=== PATIENT | male | born 1980 | race Caucasian/White ===

== ENCOUNTER 2024-01-02 13:37 | Emergency (ER) | payer OTHER ==
[2024-01-02 13:52] VITALS: BP 124/79; PULSE 75; RESP 16; TEMP 97.8; BMI 35.5
[2024-01-02] MEDS ORDERED: IBUPROFEN 600 MG TABLET (FP) PO ONE (14:19)
[2024-01-02] MEDS: IBUPROFEN 600 MG TABLET (FP) PO ONE (14:40)
[2024-01-02] MEDS: CLINDAMYCIN HCL 300 MG CAPSULE PO ONE (16:04)
[2024-01-02] MEDS ORDERED: CLINDAMYCIN HCL 150 MG CAPSULE (FP) ONE (16:04)
== END 2024-01-02 16:10 | disposition home or self-care (01) ==
LOC: FER 13:37
DX: S80.11XA Contusion of right lower leg, initial encounter (principal); X58.XXXA Exposure to other specified factors, initial encounter
CPT/HCPCS: 73590-TC-RT-FY; 93971-TC; 99284-25